=== PATIENT | male | born 1960 | race Caucasian/White ===

== ENCOUNTER 2016-08-28 14:01 | Outpatient (CLI) | payer OTHER ==
[2016-08-29 11:51] LABS: ADENOVIRUS F 40/41 Not Detected (Not Detected); ASTROVIRUS Not Detected (Not Detected); C. DIFFICILE (TOXIN A/B) Not Detected (Not Detected); CRYPTOSPORIDIUM Not Detected (Not Detected); CYCLOSPORA CAYETANENSIS Not Detected (Not Detected); ENTAMOEBA HISTOLYTICA Not Detected (Not Detected); GIARDIA LAMBLIA Not Detected (Not Detected); ROTAVIRUS A Not Detected (Not Detected); SAPOVIRUS Positive (Not Detected); VIBRIO CHOLERAE Not Detected (Not Detected)
== END 2016-08-28 14:02 ==
LOC: LAB 14:01
PROVIDERS: ATTEND Physician Assistant
DX: R19.7 Diarrhea, unspecified (principal)
CPT/HCPCS: 87507

== ENCOUNTER 2017-10-07 05:25 | Emergency (ER) | payer OTHER ==
--- NOTE | 2017-10-07 05:50 | ED Physician Documentation ---
Chest Pain - HISTORIAN Historian: patient - HPI Stated Complaint: Chest pain Chief Complaint: Chest Pain Onset: other (first onset around 1 am ) Timing: sudden onset, resolved on arrival to ED Duration: none Last known Well Date: 10/06/17 Last Known Well Time: 01:00 Last known Well Code/Unknown Code: Unknown Context: sleep Severity: moderate Quality: tightness Chest Pain Radiation: no radiation Chest Pain Signs/Symptoms: denies: nausea, vomiting, diaphoresis, dizziness, dyspnea, palpitations Worsened By: nothing Relieved By: nothing Further Comments: yes (He states around 1 am a sensation of feeling like something was sitting on or something stuck in his throat /chest area woke him. He states he does have this sensation at times but getting up and drinking water will help this symptom. He states he did drink water like normal and this did resolve the issue like normal. He states he laid back down and at 330 am he woke to the same feeling. He states he did drink his milk/protein shake and this did not help the symptoms either. He reports he did take a Naproxen and this has since resolved the pain. He states he was worried due to the fact the water and drink did not resolve the pain and his Dad had his first VA at 60.) - ROS CONST: none MS/LYMPH: none GI/: none EYES/ENT: none SKIN/ENDO: none NEURO/PSYCH: none - PAST HX VA risk factors: hypertension DVT/PE Risk Factors: none TAD/AAA risk factors: none Neuro deficit: none GI disease: GERD (on and off ) Surgeries/Procedures: appendectomy Allergies/Adverse Reactions: Allergies Allergy/AdvReac Type Severity Reaction Status Date / Time No Known Allergies Allergy Unverified 10/07/17 05:44 Home Medications: Ambulatory Orders Medication Instructions Recorded Multivitamin [Daily Multiple 1 each PO DAILY 10/07/17 Vitamin] - SOCIAL HX Smoking History: non-smoker Alcohol Use: none Drug Use: none - FAMILY HX Family HX: none - VITAL SIGNS Vital Signs: Vital Signs Temp Pulse Resp BP Pulse Ox 97.4 F L 63 16 123/81 98 10/07/17 05:30 10/07/17 05:30 10/07/17 05:30 10/07/17 05:30 10/07/17 05:30 - REVIEWED ASSESSMENTS Nursing Assessment Reviewed: Yes Vitals Reviewed: Yes ED Results Lab/Radiology - Radiology Radiology Impressions: 3 views of the chest History: CHEST PAIN, PRODUCTIVE COUGH No comparison study Heart size is normal. No focal consolidation or effusion. No acute osseous pathology Impression: No focal consolidation or pleural effusion. Electronically signed on October 07, 2017 6:38:36 AM CDT by: Carri Jean - Orders Orders: ED Orders Category Date Time Status Continuous EKG monitoring Q30M Care 10/07/17 05:30 Active Continuous Pulse Oximetry Q30M Care 10/07/17 05:[address] IV Lock 1T Care 10/07/17 05:30 Active CHEST 2VIEW [RAD] Stat Exams 10/07/17 05:44 Ordered CBC/PLATELET/DIFF Routine Lab 10/07/17 05:30 Ordered CMP Routine Lab 10/07/17 05:30 Ordered CREATINE KINASE Routine Lab 10/07/17 05:30 Ordered TROPONIN I (cTnI) Stat Lab 10/07/17 05:30 Ordered Oxygen Daily Oxygen 10/07/17 05:30 Ordered EKG WITH COMPARISON Stat Ther 10/07/17 05:30 Ordered Chest Pain Physical Exam - EXAM General Appearance: no acute distress, alert EENT: eye inspection normal, ENT inspection normal Neck: nml inspection Respiratory: no resp. distress, chest non-tender, wheezes (on RUL clear with cough ) CVS: reg. rate & rhythm, no murmur Abdomen: soft, normal bowel sounds Skin: warm/dry, normal color Extremities: non-tender, normal range of motion, no evidence of injury, no edema Neuro: oriented X3, CN's nml as tested, motor nml, sensation nml, mood/affect nml, cognition normal Discharge Clincal Impression: Chest pain Qualifiers: Chest pain type: unspecified Qualified Code(s): R07.9 - Chest pain, unspecified Referrals: Elpidio Gordon MD [Primary Care Provider] - 2 Days Comments: 1. Continue meds as scheduled 2. Follow up with Dr Gordon for cardiac work up 3. Return to ER for concerns: chest pain or other concerns Condition: Stable Disposition: 01 HOME, SELF-CARE Decision to Admit: NO Date of Decison to Admit: 10/07/17 Decision Time: 06:39
[2017-10-07 06:03] LABS: BASOPHILS % 0.6 (0.0-1.5); EOSINOPHILS % 3.8 % (0.0-6.8); MEAN CORPUSCULAR HEMOGLOBIN 32.4 pg (28.0-34.0); MEAN CORPUSCULAR VOLUME 93.9 fl (80.0-100.0); MONOCYTES % 4.4 % (0.0-11.0); NEUTROPHILS # 3.9 # k/uL (1.4-7.7)
[2017-10-07 06:13] LABS: eGFR (African) > 60; eGFR (Non-African) > 60
[2017-10-07 06:54] VITALS: BP 116/77
--- NOTE | 2017-10-07 11:10 | Diagnostic Imaging Report ---
COREY LEI [facility] [id number] [facility] [address] [place], [place]. [address] Report Submission Date: October 07, 2017 6:38:36 AM CDT Patient Study Name: RIGOBERTO MULTANI Date: October 07, 2017 5:45:43 AM CDT Modality Type: DX Gender: M Description: CHEST : 60 Institution: [facility] Physician: COREY LEI 3 views of the chest History: CHEST PAIN, PRODUCTIVE COUGH No comparison study Heart size is normal. No focal consolidation or effusion. No acute osseous pathology Impression: No focal consolidation or pleural effusion. Electronically signed on October 07, 2017 6:38:36 AM CDT by: Carri RIVERA
== END 2017-10-07 06:50 | disposition home or self-care (01) ==
LOC: ED 05:25
DX: R07.9 Chest pain, unspecified (principal)
CPT/HCPCS: 71046; 80053; 82550; 84484; 85025; S1016

== ENCOUNTER 2018-01-25 07:38 | Emergency (ER) | payer OTHER ==
--- NOTE | 2018-01-25 07:52 | ED Physician Documentation ---
Low Back Pain - HISTORIAN Historian: patient - HPI Chief Complaint: Low Back Pain/ Injury Additional Information: 57yo white male who recently had cardiac cath for LAD and diagonal lesion. Has been exercising and felt that may have strained a muscle in the mid lower back area. This AM started to have some right flank area. Has had kidney stones in the past. Has had some mild nausea. No vomiting. No fever or chills. No blood in urine noted. States that if he lays on his back it seems to help some. Patient denies any trauma to the area. Severity: severe Associated Symptoms: nausea. denies: fever, chills, sweating, vomiting Worsened By:: nothing Relieved By: nothing - ROS CONST: no problems - PAST HX Past History: back pain, kidney stones Other History: cardiac disease Surgeries/Procedures: appendectomy, other (cardiac stenting) Immunizations: referred to PCP Allergies/Adverse Reactions: Allergies Allergy/AdvReac Type Severity Reaction Status Date / Time No Known Allergies Allergy Unverified 10/07/17 05:44 Home Medications: Ambulatory Orders Medication Instructions Recorded Aspirin [Adult Low Dose Aspirin EC] 81 mg BID 01/25/18 Atorvastatin Calcium 80 mg HS 01/25/18 Cholecalciferol [Vitamin D-3] 1 each D 01/25/18 Clopidogrel Bisulfate [Clopidogrel] 75 mg D 01/25/18 Ketorolac Tromethamine [Toradol] 10 mg PO Q6 PRN #30 tablet 01/25/18 Lamotrigine [Lamictal] 200 mg HS 01/25/18 Lisinopril 10 mg D 01/25/18 Multivitamin [Multiple Vitamins] 1 each D 01/25/18 Tamsulosin HCl [Flomax] 0.4 mg PO [id number] #7 cap.er.24h 01/25/18 Vitamin E 400 units D 01/25/18 - SOCIAL HX Smoking History: non-smoker Alcohol Use: rarely Drug Use: none - FAMILY HX Family History: cardiac disease - VITAL SIGNS Vital Signs: Vital Signs Temp Pulse Resp BP Pulse Ox 98.3 F 72 18 99/67 98 01/25/18 10:44 01/25/18 10:44 01/25/18 10:44 01/25/18 10:44 01/25/18 10:44 - REVIEWED ASSESSMENTS Nursing Assessment Reviewed: Yes Vitals Reviewed: Yes Progress - Progress Progress: 09:06 Patient is pain free at this time. Will get CT scan for possible kidney stone. ED Results Lab/Radiology - Lab Results Lab Results: Lab Results 01/25/18 01/25/18 01/25/18 08:25 08:20 08:20 WBC 10.70 K/ul K/ul (4.00-12.00) RBC 4.63 M/ul M/ul (3.90-5.20) Hgb 15.0 g/dL g/dL (12.0-18.0) Hct 43.1 % % (37.0-53.0) MCV 93.1 fl fl (80.0-100.0) MCH 32.4 pg pg (28.0-34.0) MCHC 34.8 g/dL g/dL (30.0-36.0) RDW 13.6 % % (11.3-14.3) Plt Count 160 K/mm3 K/mm3 (130-400) Neut % (Auto) 87.6 % H % (39.0-79.0) Lymph % (Auto) 6.8 % L % (16.0-50.0) [place] % (Auto) 4.0 % % (0.0-11.0) Eos % (Auto) 0.2 % % (0.0-6.8) Baso % (Auto) 0.2 (0.0-1.5) Neut # (Auto) 9.4 # k/uL H # k/uL (1.4-7.7) Lymph # (Auto) 0.7 # k/uL # k/uL (0.6-4.0) [place] # (Auto) 0.4 # k/uL # k/uL (0.0-0.9) Eos # (Auto) 0.0 # k/uL # k/uL (0.0-0.6) Baso # (Auto) 0.0 # k/uL # k/uL (0.0-0.5) Reactive Lymphs % 1.1 % % (0.0-5.0) Reactive Lymphs # 0.1 # k/uL # k/uL (0.0-0.8) Sodium 135 mmol/L L mmol/L (136-145) Potassium 4.6 mmol/L mmol/L (3.5-5.1) Chloride 99 mmol/L mmol/L (98-107) Carbon Dioxide 26 mmol/L mmol/L (22-30) BUN 22 mg/dL H mg/dL (9-20) Creatinine 1.50 mg/dL H mg/dL (0.66-1.25) Estimated Creat Clear 81 Est GFR ( Amer) > 60 (60 - ) Est GFR (Non-Af Amer) 51 L (60 - ) Glucose 129 mg/dL H mg/dL (74-106) Calcium 9.3 mg/dL mg/dL (8.4-10.2) Total Bilirubin 0.5 mg/dL mg/dL (0.2-1.3) AST 21 U/L U/L (15-46) ALT 40 U/L U/L (13-69) Alkaline Phosphatase 71 U/L U/L (38-126) Total Protein 6.8 g/dL g/dL (6.3-8.2) Albumin 4.2 g/dL g/dL (3.5-5.0) Urine Color Yellow (YELLOW) Urine Appearance Clear (CLEAR) Urine pH 7.0 (5.0 - 8.0) Ur Specific [place] 1.015 (1.010-1.030) Urine Protein Negative mg/dL mg/dL (NEGATIVE) Urine Ketones Negative mg/dL mg/dL (NEGATIVE) Urine Occult Blood Trace-intact H (NEGATIVE) Urine Nitrite Negative (NEGATIVE) Urine Bilirubin Negative (NEGATIVE) Urine Urobilinogen 0.2 Eu Eu (0.2-1.0) Ur Leukocyte Esterase Negative (NEGATIVE) Urine Glucose Negative mg/dL mg/dL (NEGATIVE) - Radiology Radiology Impressions: Examination: CT Abdomen/pelvis History: RT FLANK PAIN; STONE PROTOCOL HX OF PRIOR STONES (Hx) Comparison exams: None available Technique: CT Abdomen/pelvis without IV protocol. Findings: Mild prominence of the right kidney compared with the left. Mild dilation of the right ureter in its course through the abdomen and pelvis. Just within the bladder at the right ureterovesicular junction is a 2 mm calcification. No suspicious right renal region calcifications. 1 mm mid left calyx calcification. No abnormal dilation of the left ureter or central calcifications. Remaining bladder margins are within normal limits. Liver, spleen, adrenals, pancreas, and gallbladder are without gross irregularity given exam technique. No gallstone. Abdominal aorta without aneu rysm. Mild peripheral atherosclerotic disease. Cardiac silhouette is not enlarged. No pericardial effusion. Vascular calcifications. Bowel unopacified limiting evaluation. No abnormal dilation. Stool within the large bowel limiting sensitivity. Mild mid mesenteric stranding associated with subcentimeter lymph nodes. No free fluid. Appendix not visualized - adjacent surgical clips. Small hiatal hernia. Osseous structures demonstrate mild degenerative spurring. Lung bases demonstrate dependent scarring without infiltrate. No effusion. Impression: 2 mm calcification just within the bladder at the right ureterovesicular junction associated with mild dilation of the right ureter - recently passed ureterolithiasis with residual hydroureter. Left nephrolithiasis. No acute upper abdominal organ inflammatory process. Small hiatal hernia. Mild mid abdominal mesenteric stranding with subcentimeter lymph nodes - mesenteritis. No abnormal bowel dilation or inflammation. No gallstone. Lung base scarring without consolidation or effusion. - Orders Orders: ED Orders Category Date Time Status Place IV Lock 1T Care 01/25/18 08:[address] ABD & PELVIS W/O CON Stat Exams 01/25/18 Completed CBC AUTO DIFF Routine Lab 01/25/18 08:20 Completed CMP Routine Lab 01/25/18 08:20 Completed URINALYSIS Routine Lab 01/25/18 08:25 Completed 0.9 % Sodium Chloride [Normal Saline] 1,000 ml Med 01/25/18 08:30 Discontinued IV .Q1H 0.9 % Sodium Chloride [Normal Saline] 1,000 ml Med 01/25/18 08:23 Discontinued IV .STK-MED Ketorolac Tromethamine [Toradol] Med 01/25/18 08:17 Discontinued 30 mg IVP NOW ONE Low Back Pain/Injury - Physical Exam General Appearance: moderate distress EENT: eye inspection normal, ENT inspection normal, no signs of dehydration Neck: non-tender, painless ROM, trachea midline Resp/CVS: chest non-tender, breath sounds nml, heart sounds nml, no resp. distress, lungs clear, reg. rate & rhythm Abdomen: non-tender, no organomegaly, no pulsatile mass. No: hepatomegaly, splenomegaly Back: non-tender, painless ROM, CVA tenderness (mild). No: vertebral point- tendernes Straight Leg Raising: Negative Left, Negative Right Neuro/Psych: oriented x3, motor nml Skin: warm/dry Extremities: non-tender, normal range of motion, no evidence of injury Discharge Clincal Impression: Kidney stone on right side Prescriptions: Ketorolac Tromethamine [Toradol] 10 mg PO Q6 PRN #30 tablet PRN Reason: Pain Tamsulosin HCl [Flomax] 0.4 mg PO [id number] #7 cap.er.24h Referrals: Elpidio Gordon MD [Primary Care Provider] - 2 Days Additional Instructions: Drink a lot of fluids. To Flomax as directed for 1 week. Take Toradol as needed for pain. Condition: Stable Disposition: 01 HOME, SELF-CARE Decision to Admit: NO Date of Decison to Admit: 01/25/18 Decision Time: 10:28
[2018-01-25] MEDS ORDERED: KETOROLAC TROMETHAMINE 30 MG/1ML VIAL IVP ONE (08:17)
[2018-01-25] MEDS ORDERED: 0.9 % SODIUM CHLORIDE 1,000 ML IV ONE (08:23)
[2018-01-25] MEDS ORDERED: 0.9 % SODIUM CHLORIDE 1,000 ML IV SCH (08:30)
[2018-01-25 08:54] LABS: eGFR (Non-African) 51
[2018-01-25 09:09] LABS: APPEARANCE,URINE CLEAR (CLEAR); COLOR,URINE YELLOW (YELLOW); OCCULT BLOOD,URINE TRACE-INTACT (NEGATIVE); UROBILINOGEN URINE 0.2 Eu (0.2-1.0)
[2018-01-25 09:50] LABS: BASOPHILS % 0.2 (0.0-1.5); EOSINOPHILS % 0.2 % (0.0-6.8); MEAN CORPUSCULAR HEMOGLOBIN 32.4 pg (28.0-34.0); MEAN CORPUSCULAR VOLUME 93.1 fl (80.0-100.0); NEUTROPHILS # 9.4 # k/uL (1.4-7.7)
[2018-01-25 10:45] VITALS: BP 99/67
--- NOTE | 2018-01-25 10:49 | Diagnostic Imaging Report ---
NICK GRIDER [facility] [id number] [facility] [address] [place], [place]. [address] Report Submission Date: Jan 25, 2018 10:13:43 AM CDT Patient Study Name: RIGOBERTO MULTANI Date: Jan 25, 2018 9:16:10 AM CDT Modality Type: CT\SR Gender: M Description: CT ABD PELVIS W/O CO : 60 Institution: [facility] Physician: NICK GRIDER Examination: CT Abdomen/pelvis History: RT FLANK PAIN; STONE PROTOCOL HX OF PRIOR STONES (Hx) Comparison exams: None available Technique: CT Abdomen/pelvis without IV protocol. Findings: Mild prominence of the right kidney compared with the left. Mild dilation of the right ureter in its course through the abdomen and pelvis. Just within the bladder at the right ureterovesicular junction is a 2 mm calcification. No suspicious right renal region calcifications. 1 mm mid left calyx calcification. No abnormal dilation of the left ureter or central calcifications. Remaining bladder margins are within normal limits. Liver, spleen, adrenals, pancreas, and gallbladder are without gross irregularity given exam technique. No gallstone. Abdominal aorta without aneurysm. Mild peripheral atherosclerotic disease. Cardiac silhouette is not enlarged. No pericardial effusion. Vascular calcifications. Bowel unopacified limiting evaluation. No abnormal dilation. Stool within the large bowel limiting sensitivity. Mild mid mesenteric stranding associated with subcentimeter lymph nodes. No free fluid. Appendix not visualized - adjacent surgical clips. Small hiatal hernia. Osseous structures demonstrate mild degenerative spurring. Lung bases demonstrate dependent scarring without infiltrate. No effusion. Impression: 2 mm calcification just within the bladder at the right ureterovesicular junction associated with mild dilation of the right ureter - recently passed ureterolithiasis with residual hydroureter. Left nephrolithiasis. No acute upper abdominal organ inflammatory process. Small hiatal hernia. Mild mid abdominal mesenteric stranding with subcentimeter lymph nodes - mesenteritis. No abnormal bowel dilation or inflammation. No gallstone. Lung base scarring without consolidation or effusion. Electronically signed on Jan 25, 2018 10:13:43 AM CDT by: Sulaiman RIVERA
== END 2018-01-25 10:44 | disposition home or self-care (01) ==
LOC: ED 07:38
DX: N20.0 Calculus of kidney (principal)
CPT/HCPCS: 74176; 80053; 81002; 85025; J1885; J7030; 96365; 96375; S1016